=== PATIENT | female | born 1935 ===

== ENCOUNTER 2020-08-12 08:45 | Inpatient (IN) | payer OTHER ==
[~2020-08-12] VITALS: Ht 152.4 cm; Wt 51.7 kg
[2020-08-12] MEDS ORDERED: COZAAR100 MG PO (10:29)
[2020-08-16] MEDS ORDERED: CHLORTHALIDONE25 MG (08:37)
[2020-08-16] MEDS ORDERED: OXYC1TAB9 (08:37)
[2020-08-16] MEDS ORDERED: FOLIC ACID1 MG (08:37)
== END 2020-08-29 15:43 | disposition home or self-care (01) | DRG 330 ==
LOC: SURH 08-16 05:50 → O/R 08-16 05:50 → SURH 08-16 13:46
PROVIDERS: ADMIT Surgery; ATTEND Surgery
PROC: 0D1N4Z4 Bypass Sigmoid Colon to Cutaneous, Percutaneous Endoscopic Approach (ICD-10-PCS; principal; 2020-08-16 07:00)
DX: K62.89 Other specified diseases of anus and rectum (principal); C21.0 Malignant neoplasm of anus, unspecified; N39.0 Urinary tract infection, site not specified; Z16.12 Extended spectrum beta lactamase (ESBL) resistance; R15.9 Full incontinence of feces; B96.20 Unspecified Escherichia coli [E. coli] as the cause of diseases classified elsewhere; I10 Essential (primary) hypertension